=== PATIENT | male | born 1955 | race Asian ===

== ENCOUNTER 2020-05-22 09:17 | Emergency (ER) | payer OTHER ==
[~2020-05-22] VITALS: Ht 165.1 cm; Wt 75.0 kg
[2020-05-22] MEDS ORDERED: ASPI-1111 PO (09:23)
[2020-05-22] MEDS ORDERED: HYDR-1475 PO (09:23)
[2020-05-22] MEDS ORDERED: SIMV-261 PO (09:23)
[2020-05-22 09:38] VITALS: BP 149/88
[2020-05-22] MEDS ORDERED: CEPHALEXIN MONOHYDRATE 500 MG CAPSULE PO ONE (09:45)
[2020-05-22] MEDS ORDERED: COLCHICINE 0.6 MG TABLET PO ONE (09:45)
== END 2020-05-22 10:00 | disposition home or self-care (01) ==
LOC: EMS 09:22
DX: M10.9 Gout, unspecified (principal); L03.116 Cellulitis of left lower limb; E11.9 Type 2 diabetes mellitus without complications; I10 Essential (primary) hypertension; Z79.82 Long term (current) use of aspirin

== ENCOUNTER 2023-10-31 09:51 | Emergency (ER) | payer OTHER ==
[~2023-10-31] VITALS: Ht 170.2 cm; Wt 65.9 kg
[~2023-10-31 09:51] MED LIST: ASPI-1444 PO; HYDR25TA2 PO; SIMV-261 PO
[2023-10-31 10:55] LABS: INFLUENZA A-RTPCR,COMBO NEGATIVE (NEGATIVE); INFLUENZA B-RTPCR,COMBO NEGATIVE (NEGATIVE); RESPIRATORY SYNCYTIAL VRS-PCR NEGATIVE (NEGATIVE); SARS COVID19 RTPCR, COMBO NEGATIVE (NEGATIVE)
[2023-10-31] MEDS: ACETAMINOPHEN 500 MG TABLET PO ONE (10:56)
[2023-10-31] MEDS ORDERED: AZIT250T9 PO (12:45)
[2023-10-31] MEDS: LIDOCAINE/PF 1% 2 ML VIAL IM ONE (13:03)
[2023-10-31] MEDS: CefTRIAXone SODIUM 1 GM/VIAL IM ONE (13:03)
[2023-10-31 13:28] VITALS: BP 114/72; PULSE 79; RESP 18; TEMP 98.5
== END 2023-10-31 14:28 | disposition home or self-care (01) ==
LOC: EMS 09:54
DX: J32.9 Chronic sinusitis, unspecified (principal); R50.9 Fever, unspecified; E78.00 Pure hypercholesterolemia, unspecified; I10 Essential (primary) hypertension; M10.9 Gout, unspecified; Z20.822 Contact with and (suspected) exposure to COVID-19
CPT/HCPCS: 99284; 0241U; 71045; 96372; J0696; J3490